=== PATIENT | male | born 1955 | race Caucasian/White ===

== ENCOUNTER 2019-06-26 15:08 | Emergency (ER) | payer OTHER ==
[~2019-06-26] VITALS: Ht 172.7 cm; Wt 113.4 kg
[2019-06-26] MEDS ORDERED: Norco 5-325 Ta1 EACH PO ×2 (18:40→18:41)
== END 2019-06-26 18:52 | disposition home or self-care (01) ==
LOC: ER 15:08
DX: S59.201A Unspecified physeal fracture of lower end of radius, right arm, initial encounter for closed fracture (principal); W11.XXXA Fall on and from ladder, initial encounter; Z87.891 Personal history of nicotine dependence
CPT/HCPCS: 25605; 36415; 73090; 73110; 96374-59; 99152; 99283-25; J2405; J2704; J7030